=== PATIENT | male | born 1945 | race Caucasian/White ===

== ENCOUNTER 2021-12-26 21:40 | Inpatient (IN) | payer MEDICARE ==
[~2021-12-26] VITALS: Ht 182.9 cm; Wt 61.7 kg
[2021-12-26 22:47] LABS: BASOPHILS % (AUTO) 0.6 % (0.0-2.0); EOSINOPHILS % (AUTO) 8.7 % (1.0-6.0); HEMATOCRIT 39.6 % (41-53); HEMOGLOBIN 12.9 g/dL (13.5-17.5); LYMPHOCYTES # (AUTO) 1.9 K/uL (1.0-4.8); LYMPHOCYTES % (AUTO) 22.9 % (22.0-44.0); MEAN CORPUSCULAR HEMOGLOBIN 29.4 pg (26.0-34.0); MEAN CORPUSCULAR HGB CONC 32.7 G/dL (31.0-37.0); MEAN CORPUSCULAR VOLUME 90 fL (80-100); MONOCYTES # (AUTO) 0.8 K/uL (0.1-1.0); MONOCYTES % (AUTO) 9.8 % (2.0-9.0); NEUTROPHILS # (AUTO) 4.7 K/uL (1.8-7.7); PLATELET COUNT (AUTO) 306 K/uL (150-450); RED CELL DISTRIBUTION WIDTH 14.3 % (11.5-14.5)
[2021-12-26 22:48] LABS: COVID AG,FIA SOURCE NASAL SWAB
[2021-12-26 22:59] LABS: ANION GAP 5 mmol/L (8-16); CALCIUM, TOTAL 9.3 mg/dL (8.8-10.5); CARBON DIOXIDE 30 mmol/L (22-29); CHLORIDE 108 mmol/L (98-107); GLOMERULAR FILTR. RATE CALC > 60 mL/min (>60); GLUCOSE,RANDOM 91 mg/dL (70-110); POTASSIUM 3.8 mmol/L (3.5-5.1); SODIUM SERUM 143 mmol/L (136-145); UREA NITROGEN, BLOOD 24 mg/dL (7-18)
[2021-12-26 23:03] LABS: AMPHET/METH SCREEN,URINE NEGATIVE (NEGATIVE); BARBITURATE SCREEN, URINE NEGATIVE (NEGATIVE); BENZODIAZEPINES SCREEN,URINE POSITIVE (NEGATIVE); CANNABINOID SCREEN,URINE NEGATIVE (NEGATIVE); COCAINE SCREEN,URINE NEGATIVE (NEGATIVE); METHADONE SCREEN, URINE NEGATIVE (NEGATIVE); OPIATE SCREEN,URINE NEGATIVE (NEGATIVE)
[2021-12-26 23:04] LABS: ALANINE AMINOTRANSFERASE 14 U/L (12-78); ALBUMIN 3.4 g/dL (3.4-5.0); ALKALINE PHOSPHATASE 38 U/L (46-116); ASPARTATE AMINOTRANSFERASE 13 U/L (15-37); BILIRUBIN,TOTAL 0.2 mg/dL (0.1-1.0); TOTAL PROTEIN, SERUM 7.1 g/dL (6.4-8.2)
[2021-12-26 23:05] LABS: PHENCYCLIDINE SCREEN,URINE NEGATIVE (NEGATIVE)
[2021-12-27] MEDS ORDERED: ALBUTEROL SULFATE 2.5 MG/0.5 ML NEB SOLUTION NEB ONE
[2021-12-27] MEDS ORDERED: HALOPERIDOL 5 MG TABLET PO PRN (01:00)
[2021-12-27] MEDS ORDERED: ACETAMINOPHEN 500 MG TABLET PO ONE (01:00)
[2021-12-27] MEDS: LORazepam 2 MG TABLET PO PRN ×2 (01:55→22:05)
[2021-12-27] MEDS ORDERED: ALBUTEROL SULFATE HFA 90 MCG/PUFF 8 GM INHALER IH ONE (20:15)
[2021-12-27] MEDS: ZOLPIDEM TARTRATE 10 MG TABLET PO PRN (22:05)
[2021-12-28] MEDS ORDERED: CloNIDine HCL 0.1 MG TABLET PO PRN (18:00)
[2021-12-28] MEDS ORDERED: ONDANSETRON HCL 4 MG TABLET PO PRN (18:00)
[2021-12-28] MEDS ORDERED: MAG HYDROX/AL HYDROX/SIMETH ES 30 ML SUSPENSION UDCUP PO PRN (18:00)
[2021-12-28] MEDS ORDERED: PETROLATUM,WHITE 28 GM JELLY TP PRN (18:00)
[2021-12-28] MEDS ORDERED: LOPERAMIDE HCL 2 MG CAPSULE PO PRN (18:00)
[2021-12-28] MEDS ORDERED: GuaiFENesin/D-METHORPHAN [SUGAR-FREE] 200-20MG/10 ML SYRUP UDCUP PO PRN (18:00)
[2021-12-28] MEDS ORDERED: NICOTINE 14 MG/24 HOUR PATCH TD PRN (18:00)
[2021-12-28] MEDS ORDERED: MAGNESIUM HYDROXIDE SUSPENSION 30 ML UDCUP PO PRN (18:00)
[2021-12-28] MEDS ORDERED: ACETAMINOPHEN 325 MG TABLET PO PRN (18:00)
[2021-12-28] MEDS ORDERED: DOCUSATE SODIUM 100 MG CAPSULE PO PRN (18:00)
[2021-12-28 18:25] VITALS: BP 121/83
[2021-12-28] MEDS ORDERED: PNEUMOCOCCAL VACCINE POLYVALENT 0.5 ML VIAL [PPSV23] IM. ONE (18:45)
[2021-12-28] MEDS: ZOLPIDEM TARTRATE 10 MG TABLET PO PRN (21:36)
[2021-12-28 22:05] VITALS: BP 114/67
[2021-12-29 04:50] VITALS: BP 125/84
[2021-12-29] MEDS: ALBUTEROL SULFATE HFA 90 MCG/PUFF 8 GM INHALER IH PRN ×2 (04:56→16:46)
[2021-12-29] MEDS: FLUTICASONE/VILANTEROL 200-25 MCG/INH INHALER [14] IH SCH (11:00)
[2021-12-29 12:15] VITALS: BP 115/17
[2021-12-29] MEDS: IBUPROFEN 400 MG TABLET PO PRN (14:38)
[2021-12-29 20:24] VITALS: BP 135/87
[2021-12-29] MEDS: ZOLPIDEM TARTRATE 10 MG TABLET PO PRN (21:36)
[2021-12-30] MEDS: LORazepam 2 MG TABLET PO PRN (00:37)
[2021-12-30 08:10] VITALS: BP 130/80
[2021-12-30] MEDS: FLUTICASONE/VILANTEROL 200-25 MCG/INH INHALER [14] IH SCH (08:47)
[2021-12-30] MEDS: ALBUTEROL SULFATE HFA 90 MCG/PUFF 8 GM INHALER IH PRN (09:23)
[2021-12-30] MEDS: TraMADol HCL 50 MG TABLET PO PRN (09:40)
[2021-12-30] MEDS: IBUPROFEN 400 MG TABLET PO PRN ×2 (12:04→21:00)
[2021-12-30 17:00] VITALS: BP 127/76
[2021-12-30 20:06] VITALS: BP 127/69
[2021-12-30 20:56] VITALS: BP 117/72
[2021-12-30] MEDS: ZOLPIDEM TARTRATE 10 MG TABLET PO PRN (21:01)
[2021-12-31 08:40] VITALS: BP 147/82
[2021-12-31] MEDS: FLUTICASONE/VILANTEROL 200-25 MCG/INH INHALER [14] IH SCH (09:00)
[2021-12-31 09:50] VITALS: BP 142/78
[2021-12-31] MEDS: TraMADol HCL 50 MG TABLET PO PRN ×2 (09:50→21:04)
[2021-12-31] MEDS: ALBUTEROL SULFATE HFA 90 MCG/PUFF 8 GM INHALER IH PRN (09:50)
[2021-12-31] MEDS: ZOLPIDEM TARTRATE 10 MG TABLET PO PRN (20:23)
[2021-12-31 21:03] VITALS: BP 114/75
[2021-12-31] MEDS: LORazepam 2 MG TABLET PO PRN (21:03)
[2022-01-01 06:53] LABS: COVID AG,FIA SOURCE NASAL SWAB
[2022-01-01] MEDS: FLUTICASONE/VILANTEROL 200-25 MCG/INH INHALER [14] IH SCH (08:07)
[2022-01-01] MEDS: IBUPROFEN 400 MG TABLET PO PRN (08:33)
[2022-01-01] MEDS: ALBUTEROL SULFATE HFA 90 MCG/PUFF 8 GM INHALER IH PRN (08:33)
[2022-01-01 08:34] VITALS: BP 134/93
== END 2022-01-01 12:43 | disposition home or self-care (01) | DRG 884 ==
LOC: EMS 21:41 → B2X 12-28 15:57 → 3EX 12-30 17:00
PROVIDERS: ADMIT Psychiatry & Neurology Child & Adolescent Psychiatry; ATTEND Psychiatry & Neurology Child & Adolescent Psychiatry
DX: F03.91 Unspecified dementia, unspecified severity, with behavioral disturbance (principal); F29 Unspecified psychosis not due to a substance or known physiological condition; J44.9 Chronic obstructive pulmonary disease, unspecified; Z20.822 Contact with and (suspected) exposure to COVID-19; G89.29 Other chronic pain; D64.9 Anemia, unspecified; Z98.890 Other specified postprocedural states; Z91.012 Allergy to eggs
CPT/HCPCS: 80053; 85025; 87081; 94640; 99285; G0378; G0480; J3535; Q9967